=== PATIENT | male | born 1975 | race Caucasian/White ===

== ENCOUNTER → 2018-05-30 | Outpatient (CLI) | payer MEDICARE, OTHER ==
[~2018-05-30] VITALS: Ht 180.3 cm; Wt 76.2 kg
[~2018-05-30] MED LIST: ACET325T9 PO; AZIT250T PO; BUDE10.2 IH; CALC0.25 PO; CALC667T PO; DOCU-109 PO; LEVO25TA55 PO; METH-37 PO; MONT10TA9 PO; ONDA4TAB10 SL; OXYC-323 PO; OXYC10TA45 PO; PROAIR HFA8.5 GM IH
[2018-05-30 10:26] VITALS: BP 165/102
--- NOTE | 2018-06-02 11:43 | RAD ---
Fluoroscopic evaluation of peritoneal dialysis catheter without contrast 05/30/2018 Indication: Catheter aspiration painful Discussion: The risks and benefits of the procedure were discussed the patient. Informed consent was obtained. The anterior abdomen including pre-existing. Dialysis catheter which enters the right lower quadrant were prepped and draped using sterile barrier technique. Fluoroscopic evaluation demonstrates normal positioning of the catheter coiled in the pelvis. Contrast could not be administered secondary to contrast allergy. Saline was administered to the tube which freely flushes and aspirates. Wire manipulation of the tube performed, demonstrating free uncoiling and recoil of the catheter. No immediate complications were identified. Fluoroscopy time 0.9 minutes Dose area product:4 Gycm2 Impression: Unremarkable fluoroscopic appearance of peritoneal dialysis catheter.
== END | disposition home or self-care (01) ==
LOC: INTRAD 09:52
PROVIDERS: ATTEND Internal Medicine Nephrology
DX: T85.848A Pain due to other internal prosthetic devices, implants and grafts, initial encounter (principal); G89.18 Other acute postprocedural pain; Y83.8 Other surgical procedures as the cause of abnormal reaction of the patient, or of later complication, without mention of misadventure at the time of the procedure; Y92.89 Other specified places as the place of occurrence of the external cause; Z91.041 Radiographic dye allergy status; Z88.1 Allergy status to other antibiotic agents; Z88.8 Allergy status to other drugs, medicaments and biological substances
CPT/HCPCS: 49400; 74190